=== PATIENT | male | born 1950 | race African-American/Black ===

== ENCOUNTER 2025-05-24 04:57 | Emergency (ER) | payer OTHER ==
[~2025-05-24] VITALS: Ht 170.2 cm; Wt 82.0 kg
[2025-05-24 05:00] VITALS: O2SAT 99
[2025-05-24] MEDS: METOCLOPRAMIDE HCL 10MG/2ML VIAL IV ONE (07:28)
[2025-05-24] MEDS: KETOROLAC 15MG/ML VIAL IV ONE (07:28)
[2025-05-24] MEDS: HYDRALAZINE 20MG/ML VIAL IV ONE ×2 (07:31→08:21)
[2025-05-24 08:00] LABS: BASOPHILS % 0.8 % (0.0-2.0); EOSINOPHILS % 5.1 % (0.0-5.0); HEMATOCRIT. 37.3 % (42.0-52.0); HEMOGLOBIN. 12.6 g/dL (14.0-18.0); LYMPHOCYTES % 9.2 % (20.0-50.0); MEAN PLATELET VOLUME 7.2 fl (7.4-10.4); MONOCYTES % 5.2 % (2.0-8.0); NEUTROPHILS % 79.7 % (40.0-76.0); PLATELET 685 x1000/uL (130-400); RED BLOOD CELL COUNT 4.44 mill/uL (4.7-6.1); RED CELL DISTRIBUTION WIDTH 14.5 % (11.6-14.6)
[2025-05-24 08:18] LABS: CREATININE 1.2 mg/dL (0.6-1.3); UREA NITROGEN BLOOD 9 mg/dL (9-23)
[2025-05-24] MEDS: SODIUM CHLORIDE 0.9% 500 ML IV ONE (08:20)
[2025-05-24] MEDS: POTASSIUM CHLORIDE 20MEQ/PACKET PO ONE (09:06)
[2025-05-24 10:15] VITALS: BP 178/83; PULSE 99; RESP 16; TEMP 36.7; O2SAT 99
[2025-05-24] MEDS ORDERED: ONDANSETRON HCL 4MG/2ML INJ IV PRN (11:00)
[2025-05-24] MEDS ORDERED: ACETAMINOPHEN 325MG TABLET PO PRN ×2 (11:00)
[2025-05-24] MEDS ORDERED: CLONIDINE 0.1MG TABLET PO PRN (11:00)
[2025-05-24] MEDS ORDERED: IPRATROPIUM/ALBUTEROL 0.5-3(2.5)MG/3ML NEB HHN PRN (11:00)
[2025-05-24] MEDS ORDERED: DOCUSATE SODIUM 100MG CAPSULE PO PRN (11:00)
[2025-05-24] MEDS ORDERED: ENOXAPARIN 40MG/0.4ML SYR SUBCUT SCH (21:00)
== END 2025-05-24 10:20 | disposition short-term general hospital (02) ==
LOC: ER 04:57 → CMPBEDREQ 05-25 08:02
DX: R51.9 Headache, unspecified (principal); I10 Essential (primary) hypertension
CPT/HCPCS: 99285; 96374; 70450; 96375; 71045; 80048; 85025; 36415; 96376; J1885; J0360; J2765; J7040